=== PATIENT | female | born 1995 | race Caucasian/White ===

== ENCOUNTER 2016-09-28 11:55 | Outpatient (CLI) | payer BC, MEDICAID ==
[2016-09-28 12:27] LABS: APPEARANCE,URINE SLIGHTLY-CLOUDY; BILIRUBIN,URINE NEGATIVE (NEGATIVE); GLUCOSE, URINE NEGATIVE (NEGATIVE); KETONES,URINE NEGATIVE (NEGATIVE); LEUKOCYTE ESTERASE,URINE TRACE (NEGATIVE); NITRITE,URINE NEGATIVE (NEGATIVE); PROTEIN,URINE NEGATIVE (NEGATIVE); URINE SPECIFIC GRAVITY 1.002; UROBILINOGEN,URINE NEGATIVE mg/dL (<2.0)
[2016-09-28 12:47] LABS: URINE BARBITURATES SCREEN NEGATIVE; URINE METHADONE SCREEN NEGATIVE; URINE OPIATES LOW NEGATIVE; URINE PHENCYCLIDINE SCREEN NEGATIVE
--- NOTE | 2016-09-28 13:39 | Non Stress Test Report ---
Non Stress Test Datetime Report Generated by CPN: 09/28/2016 13:39 DEMOGRAPHIC EGA NST: 34.4 INDICATION Indication for Study (NST) Other: LC MONITORING Monitor Explained: Monitor Explained; Test Explained; Patient Verbalized Understanding Time on Monitor: 09/28/2016 12:14 Time off Monitor: 09/28/2016 13:28 NST Duration: 74 NST INTERVENTIONS NST Interventions: PO Hydration; Reposition Patient Physician Notified NST: Dr Matthews/C Gerber CNM BABY A: [id number] BABY A Movement : Present Contraction Frequency : 0 FHR Baseline : 145 Accelerations : 15X15 Decelerations : None Variability : Moderate 6-25bpm NST Review: Meets Criteria for Reactive NST NST Review and Verified By : D Bellavance RNC NST Results: Reactive NST REPORT Report Trigger: Send Report
== END 2016-09-28 13:37 | disposition home or self-care (01) ==
LOC: LC 11:55
PROVIDERS: ATTEND Obstetrics & Gynecology
PROC: 4A1HXCZ Monitoring of Products of Conception, Cardiac Rate, External Approach (ICD-10-PCS; principal; 2016-09-28)
DX: O47.03 False labor before 37 completed weeks of gestation, third trimester (principal); Z3A.34 34 weeks gestation of pregnancy
CPT/HCPCS: 59025; 80307; 81001

== ENCOUNTER 2016-10-18 10:57 | Outpatient (CLI) | payer MEDICAID ==
--- NOTE | 2016-10-18 12:14 | Non Stress Test Report ---
Non Stress Test Datetime Report Generated by CPN: 10/18/2016 12:14 DEMOGRAPHIC EGA NST: 37.3 INDICATION Indication for Study: Decreased Movement MONITORING Monitor Explained: Monitor Explained; Test Explained; Patient Verbalized Understanding Time on Monitor: 10/18/2016 11:18 Time off Monitor: 10/18/2016 11:58 NST Duration: 40 NST INTERVENTIONS NST Interventions: PO Hydration; Reposition Patient Physician Notified NST: Dr Matthews BABY A: [id number] BABY A Movement : Present Contraction Frequency : 0 FHR Baseline : 145 Accelerations : 15X15 Decelerations : None Variability : Moderate 6-25bpm NST Review: Meets Criteria for Reactive NST NST Review and Verified By : Earl Pierson RNC NST Results: Reactive NST REPORT Report Trigger: Send Report
== END 2016-10-18 12:06 | disposition home or self-care (01) ==
LOC: LC 10:57
PROVIDERS: ATTEND Obstetrics & Gynecology
PROC: 4A1HXCZ Monitoring of Products of Conception, Cardiac Rate, External Approach (ICD-10-PCS; principal; 2016-10-18)
DX: O36.8130 Decreased fetal movements, third trimester, not applicable or unspecified (principal); Z3A.37 37 weeks gestation of pregnancy
CPT/HCPCS: 59025

== ENCOUNTER 2016-10-26 09:56 | Outpatient (CLI) | payer BC, MEDICAID ==
--- NOTE | 2016-10-26 10:04 | Non Stress Test Report ---
Non Stress Test Datetime Report Generated by CPN: 10/26/2016 10:03 DEMOGRAPHIC EGA NST: 37.6 INDICATION Indication for Study: Ordered by Provider MONITORING Monitor Explained: Monitor Explained; Test Explained; Patient Verbalized Understanding Time on Monitor: 10/21/2016 13:25 Time off Monitor: 10/21/2016 14:03 NST Duration: 38 NST INTERVENTIONS NST Interventions: PO Hydration Physician Notified NST: H. Dion CNM BABY A: [id number] BABY A Movement : Present Contraction Frequency : 0 FHR Baseline : 140 Accelerations : 15X15 Decelerations : None Variability : Moderate 6-25bpm NST Review: Meets Criteria for Reactive NST NST Review and Verified By : GRANT Aceves Results: Reactive NST COMMENTS NST Comments: Per H. Dion CNM ok to be d/c home NST REPORT Report Trigger: Send Report
== END 2016-10-26 10:46 | disposition home or self-care (01) ==
LOC: LC 09:56
PROVIDERS: ATTEND Obstetrics & Gynecology
PROC: 4A1HXCZ Monitoring of Products of Conception, Cardiac Rate, External Approach (ICD-10-PCS; principal; 2016-10-26)
DX: Z34.93 Encounter for supervision of normal pregnancy, unspecified, third trimester (principal)
CPT/HCPCS: 59025

== ENCOUNTER 2016-10-27 00:46 | Outpatient (CLI) | payer BC, MEDICAID ==
--- NOTE | 2016-10-27 00:49 | Non Stress Test Report ---
Non Stress Test Datetime Report Generated by CPN: 10/27/2016 00:49 DEMOGRAPHIC EGA NST: 38.4 INDICATION Indication for Study: Ordered by Provider VITAL SIGNS Temperature - NST: 98.9 Pulse - NST: 83 RESP - NST: 16 NBPSYS NST: 110 NBPDIA NST: 65 MONITORING Monitor Explained: Monitor Explained; Test Explained; Patient Verbalized Understanding Time on Monitor: 10/26/2016 10:09 Time off Monitor: 10/26/2016 10:42 NST Duration: 33 NST INTERVENTIONS NST Interventions: PO Hydration; Reposition Patient Physician Notified NST: Dr Prince BABY A: [id number] BABY A Movement : Present Contraction Frequency : denies FHR Baseline : 145 Accelerations : 15X15 Decelerations : None Variability : Moderate 6-25bpm NST Review: Meets Criteria for Reactive NST NST Review and Verified By : Roby Meraz RN NST Results: Reactive NST REPORT Report Trigger: Send Report
[2016-10-27 01:23] LABS: APPEARANCE,URINE CLOUDY; BILIRUBIN,URINE NEGATIVE (NEGATIVE); GLUCOSE, URINE NEGATIVE (NEGATIVE); KETONES,URINE NEGATIVE (NEGATIVE); LEUKOCYTE ESTERASE,URINE MODERATE (NEGATIVE); NITRITE,URINE NEGATIVE (NEGATIVE); PROTEIN,URINE NEGATIVE (NEGATIVE); URINE SPECIFIC GRAVITY 1.004; UROBILINOGEN,URINE NEGATIVE mg/dL (<2.0)
[2016-10-27 01:29] LABS: AMNISURE (ROM) NEGATIVE (NEGATIVE)
[2016-10-27 01:52] LABS: URINE BARBITURATES SCREEN NEGATIVE; URINE METHADONE SCREEN NEGATIVE; URINE OPIATES LOW NEGATIVE; URINE PHENCYCLIDINE SCREEN NEGATIVE
== END 2016-10-27 08:10 | disposition home or self-care (01) ==
LOC: LC 00:46
PROVIDERS: ATTEND Obstetrics & Gynecology
DX: Z34.83 Encounter for supervision of other normal pregnancy, third trimester (principal); Z3A.38 38 weeks gestation of pregnancy
CPT/HCPCS: 59025; 80307; 81005; 84112

== ENCOUNTER → 2016-10-28 | Outpatient (CLI) | payer BC, MEDICAID ==
--- NOTE | 2016-10-28 09:49 | Non Stress Test Report ---
Non Stress Test Datetime Report Generated by CPN: 10/28/2016 09:48 DEMOGRAPHIC EGA NST: 38.5 INDICATION Indication for Study: Ordered by Provider MONITORING Monitor Explained: Monitor Explained; Test Explained; Patient Verbalized Understanding Time on Monitor: 10/27/2016 01:04 NST INTERVENTIONS NST Interventions: PO Hydration Physician Notified NST: Dr. Prince BABY A: [id number] BABY A Movement : Present Contraction Frequency : none FHR Baseline : 140 Accelerations : 15X15 Decelerations : None Variability : Moderate 6-25bpm NST Review: Meets Criteria for Reactive NST NST Review and Verified By : ALISON Headley NST Results: Reactive NST REPORT Report Trigger: Send Report
--- NOTE | 2016-10-28 10:21 | Non Stress Test Report ---
Non Stress Test Datetime Report Generated by CPN: 10/28/2016 10:21 DEMOGRAPHIC EGA NST: 38.6 INDICATION Indication for Study: Decreased Movement Indication for Study (NST) Other: sent from the office for repeat MONITORING Monitor Explained: Monitor Explained; Test Explained; Patient Verbalized Understanding Time on Monitor: 10/28/2016 10:00 Time off Monitor: 10/28/2016 10:20 NST Duration: 20 NST INTERVENTIONS NST Interventions: PO Hydration; Reposition Patient Physician Notified NST: Dr Matthews BABY A Movement : Present Contraction Frequency : 0 FHR Baseline : 130 Accelerations : 15X15 Decelerations : None Variability : Moderate 6-25bpm NST Review: Meets Criteria for Reactive NST NST Review and Verified By : Chris Morrison RN NST Results: Reactive NST REPORT Report Trigger: Send Report
== END ==
LOC: LC 09:39
PROVIDERS: ATTEND Obstetrics & Gynecology
PROC: 4A1HXCZ Monitoring of Products of Conception, Cardiac Rate, External Approach (ICD-10-PCS; principal; 2016-10-28)
DX: O36.8130 Decreased fetal movements, third trimester, not applicable or unspecified (principal); Z3A.38 38 weeks gestation of pregnancy
CPT/HCPCS: 59025

== ENCOUNTER 2016-10-30 16:47 | Outpatient (CLI) | payer BC, MEDICAID ==
[2016-10-30 17:23] LABS: APPEARANCE,URINE CLOUDY; BILIRUBIN,URINE NEGATIVE (NEGATIVE); GLUCOSE, URINE NEGATIVE (NEGATIVE); KETONES,URINE NEGATIVE (NEGATIVE); LEUKOCYTE ESTERASE,URINE MODERATE (NEGATIVE); NITRITE,URINE NEGATIVE (NEGATIVE); PROTEIN,URINE NEGATIVE (NEGATIVE); URINE SPECIFIC GRAVITY 1.015; UROBILINOGEN,URINE NEGATIVE mg/dL (<2.0)
[2016-10-30 17:42] LABS: URINE BARBITURATES SCREEN NEGATIVE; URINE METHADONE SCREEN NEGATIVE; URINE OPIATES LOW NEGATIVE; URINE PHENCYCLIDINE SCREEN NEGATIVE
== END 2016-10-30 17:48 | disposition home or self-care (01) ==
LOC: LC 16:47
PROVIDERS: ATTEND Obstetrics & Gynecology
PROC: 4A1HXCZ Monitoring of Products of Conception, Cardiac Rate, External Approach (ICD-10-PCS; principal; 2016-10-30)
DX: O47.1 False labor at or after 37 completed weeks of gestation (principal); Z3A.38 38 weeks gestation of pregnancy
CPT/HCPCS: 80307; 81005

== ENCOUNTER 2016-11-01 11:12 | Outpatient (CLI) | payer BC, MEDICAID ==
[2016-11-01 11:45] LABS: APPEARANCE,URINE SLIGHTLY-CLOUDY; BILIRUBIN,URINE NEGATIVE (NEGATIVE); GLUCOSE, URINE NEGATIVE (NEGATIVE); KETONES,URINE NEGATIVE (NEGATIVE); LEUKOCYTE ESTERASE,URINE NEGATIVE (NEGATIVE); NITRITE,URINE NEGATIVE (NEGATIVE); PROTEIN,URINE NEGATIVE (NEGATIVE); URINE SPECIFIC GRAVITY 1.014; UROBILINOGEN,URINE NEGATIVE mg/dL (<2.0)
[2016-11-01 12:08] LABS: URINE BARBITURATES SCREEN NEGATIVE; URINE METHADONE SCREEN NEGATIVE; URINE OPIATES LOW NEGATIVE; URINE PHENCYCLIDINE SCREEN NEGATIVE
[2016-11-01 12:19] LABS: URINE CREATININE 102.7 mg/dL (16-327); URINE PROTEIN 13.7 mg/dL (<12)
[2016-11-01 12:26] LABS: ABSOLUTE EOSINOPHILS # (AUTO) 0.1 10^3/uL (0.0-0.6); ABSOLUTE MONOCYTES (AUTO) 0.7 10^3/uL (0.1-1.4); ABSOLUTE NEUT (AUTO) 7.9 10^3/uL (1.7-8.2); BASOPHILS % (AUTO) 0.3 % (0-2); EOSINOPHILS % (AUTO) 1.1 % (0-6); HEMOGLOBIN 12.6 g/dL (12.0-15.5); HGB HCT DIFFERENCE 0.8; MEAN CORPUSCULAR HEMOGLOBIN 29.6 pg (27.0-33.4); MEAN CORPUSCULAR VOLUME 87 fl (80-97); MONOCYTES % (AUTO) 6.2 % (3-13); RED BLOOD COUNT 4.25 10^6/uL (3.72-5.28); RED CELL DISTRIBUTION WIDTH 13.4 % (11.5-14.0); SEGMENTED NEUTROPHILS % (AUTO) 73.4 % (42-78); WHITE BLOOD COUNT 10.7 10^3/uL (4.0-10.5)
[2016-11-01 12:47] LABS: ALANINE AMINOTRANSFERASE 19 U/L (9-52); ALBUMIN 3.2 g/dL (3.5-5.0); ALKALINE PHOSPHATASE 141 U/L (38-126); ANION GAP 9 (5-19); ASPARTATE AMINO TRANSFERASE 16 U/L (14-36); BILIRUBIN,DIRECT 0.2 mg/dL (0.0-0.4); BILIRUBIN,TOTAL 0.2 mg/dL (0.2-1.3); BLOOD UREA NITROGEN 15 mg/dL (7-20); CALCIUM 10.1 mg/dL (8.4-10.2); CARBON DIOXIDE 21 mmol/L (22-30); CHLORIDE 108 mmol/L (98-107); CREATININE RESULT 0.81 mg/dL (0.52-1.25); GLUCOSE 77 mg/dL (75-110); LDH 385 U/L (313-618); POTASSIUM 4.4 mmol/L (3.6-5.0); SODIUM 138.4 mmol/L (137-145); TOTAL PROTEIN 6.1 g/dL (6.3-8.2); URIC ACID 7.7 mg/dL (2.5-6.2)
--- NOTE | 2016-11-01 13:09 | Non Stress Test Report ---
Non Stress Test Datetime Report Generated by CPN: 11/01/2016 13:09 DEMOGRAPHIC EGA NST: 39.3 EGA NST: 39.1 INDICATION Indication for Study: Other Indication for Study (NST) Other: PIH workup MONITORING Monitor Explained: Monitor Explained; Test Explained; Patient Verbalized Understanding Monitor Explained: Monitor Explained; Test Explained; Patient Verbalized Understanding Time on Monitor: 11/01/2016 11:28 Time on Monitor: 10/30/2016 17:03 Time off Monitor: 11/01/2016 13:04 NST Duration: 96 NST INTERVENTIONS NST Interventions: PO Hydration; Reposition Patient NST Interventions: None Physician Notified NST: C. Gerber CNM Physician Notified NST: P Bennett CNM BABY A: [id number] BABY A Movement : Present Movement : Decreased Contraction Frequency : none FHR Baseline : 145 Accelerations : 15X15 Accelerations : 15X15 Decelerations : None Decelerations : None Variability : Moderate 6-25bpm Variability : Moderate 6-25bpm NST Review: Meets Criteria for Reactive NST NST Review: Meets Criteria for Reactive NST NST Review and Verified By : Chris Morrison RN NST Review and Verified By : Brian Yan RN NST Results: Reactive NST Results: Reactive NST REPORT Report Trigger: Send Report
== END 2016-11-01 13:12 | disposition home or self-care (01) ==
LOC: LC 11:12
PROVIDERS: ATTEND Specialist
PROC: 4A1HXCZ Monitoring of Products of Conception, Cardiac Rate, External Approach (ICD-10-PCS; principal; 2016-11-01)
DX: O36.8130 Decreased fetal movements, third trimester, not applicable or unspecified (principal); Z3A.39 39 weeks gestation of pregnancy
CPT/HCPCS: 36415; 59025; 80053; 80307; 81001; 82570; 83615; 84156; 84550; 85025

== ENCOUNTER 2016-11-02 10:11 | Outpatient (CLI) | payer BC, MEDICAID ==
[2016-11-02 11:01] LABS: APPEARANCE,URINE CLOUDY; BILIRUBIN,URINE NEGATIVE (NEGATIVE); GLUCOSE, URINE NEGATIVE (NEGATIVE); KETONES,URINE NEGATIVE (NEGATIVE); LEUKOCYTE ESTERASE,URINE NEGATIVE (NEGATIVE); NITRITE,URINE NEGATIVE (NEGATIVE); PROTEIN,URINE NEGATIVE (NEGATIVE); URINE SPECIFIC GRAVITY 1.018; UROBILINOGEN,URINE NEGATIVE mg/dL (<2.0)
--- NOTE | 2016-11-02 11:21 | Non Stress Test Report ---
Non Stress Test Datetime Report Generated by CPN: 11/02/2016 11:21 DEMOGRAPHIC EGA NST: 38.4 INDICATION Indication for Study: Other Indication for Study (NST) Other: lc VITAL SIGNS Temperature - NST: 98.5 MONITORING Monitor Explained: Monitor Explained; Test Explained; Patient Verbalized Understanding Time on Monitor: 10/26/2016 10:23 Time off Monitor: 11/02/2016 11:19 NST Duration: 10301 NST INTERVENTIONS NST Interventions: PO Hydration; Reposition Patient Physician Notified NST: Matthews BABY A: [id number] BABY A Movement : Present Contraction Frequency : 0 FHR Baseline : 135 Accelerations : 15X15 Decelerations : None Variability : Moderate 6-25bpm NST Review: Meets Criteria for Reactive NST NST Review and Verified By : Roby Johnson RN NST Results: Reactive NST REPORT Report Trigger: Send Report
[2016-11-02 11:28] LABS: URINE BARBITURATES SCREEN NEGATIVE; URINE METHADONE SCREEN NEGATIVE; URINE OPIATES LOW NEGATIVE; URINE PHENCYCLIDINE SCREEN NEGATIVE
== END 2016-11-02 11:44 | disposition home or self-care (01) ==
LOC: LC 10:11
PROVIDERS: ATTEND Obstetrics & Gynecology
PROC: 4A1HXCZ Monitoring of Products of Conception, Cardiac Rate, External Approach (ICD-10-PCS; principal; 2016-11-02)
DX: O47.1 False labor at or after 37 completed weeks of gestation (principal); Z3A.38 38 weeks gestation of pregnancy
CPT/HCPCS: 59025; 80307; 81005

== ENCOUNTER 2016-11-03 09:55 | Inpatient (IN) | payer BC, MEDICAID ==
[2016-11-03] MEDS ORDERED: ONDANSETRON HCL INJ/PF 4 MG/2 ML SDV ONE ×2 (10:29→12:39)
[2016-11-03] MEDS ORDERED: METOCLOPRAMIDE HCL INJ/PF 10 MG/2 ML SDV ONE (10:29)
[2016-11-03] MEDS ORDERED: DEXAMETHASONE SOD PHOSPHATE INJ 4 MG/1 ML VIAL ONE (10:29)
[2016-11-03 10:43] LABS: APPEARANCE,URINE CLOUDY; BILIRUBIN,URINE NEGATIVE (NEGATIVE); GLUCOSE, URINE NEGATIVE (NEGATIVE); KETONES,URINE NEGATIVE (NEGATIVE); LEUKOCYTE ESTERASE,URINE TRACE (NEGATIVE); NITRITE,URINE NEGATIVE (NEGATIVE); PROTEIN,URINE 100 mg/dL (NEGATIVE); URINE SPECIFIC GRAVITY 1.024; UROBILINOGEN,URINE NEGATIVE mg/dL (<2.0)
[2016-11-03 11:00] LABS: ABSOLUTE BASOPHILS # (AUTO) 0.1 10^3/uL (0.0-0.2); ABSOLUTE EOSINOPHILS # (AUTO) 0.1 10^3/uL (0.0-0.6); ABSOLUTE LYMPHOCYTES (AUTO) 2.4 10^3/uL (0.5-4.7); ABSOLUTE MONOCYTES (AUTO) 0.8 10^3/uL (0.1-1.4); ABSOLUTE NEUT (AUTO) 8.6 10^3/uL (1.7-8.2); BASOPHILS % (AUTO) 0.7 % (0-2); HEMOGLOBIN 13.7 g/dL (12.0-15.5); HGB HCT DIFFERENCE 1.1; LYMPHOCYTES % (AUTO) 19.8 % (13-45); MEAN CORPUSCULAR HEMOGLOBIN 29.6 pg (27.0-33.4); MEAN CORPUSCULAR HGB CONC 34.3 g/dL (32.0-36.0); MEAN CORPUSCULAR VOLUME 86 fl (80-97); MONOCYTES % (AUTO) 6.3 % (3-13); RED BLOOD COUNT 4.64 10^6/uL (3.72-5.28); RED CELL DISTRIBUTION WIDTH 13.7 % (11.5-14.0); SEGMENTED NEUTROPHILS % (AUTO) 72.2 % (42-78)
[2016-11-03 11:03] LABS: URINE BARBITURATES SCREEN NEGATIVE; URINE METHADONE SCREEN NEGATIVE; URINE OPIATES LOW NEGATIVE; URINE PHENCYCLIDINE SCREEN NEGATIVE
[2016-11-03 11:26] LABS: ALANINE AMINOTRANSFERASE 22 U/L (9-52); ALBUMIN 3.4 g/dL (3.5-5.0); ALKALINE PHOSPHATASE 166 U/L (38-126); ANION GAP 12 (5-19); ASPARTATE AMINO TRANSFERASE 20 U/L (14-36); BILIRUBIN,DIRECT 0.2 mg/dL (0.0-0.4); BILIRUBIN,TOTAL 0.3 mg/dL (0.2-1.3); BLOOD UREA NITROGEN 13 mg/dL (7-20); CALCIUM 9.3 mg/dL (8.4-10.2); CARBON DIOXIDE 19 mmol/L (22-30); CHLORIDE 107 mmol/L (98-107); CREATININE RESULT 0.86 mg/dL (0.52-1.25); GLUCOSE 70 mg/dL (75-110); LDH 420 U/L (313-618); POTASSIUM 4.5 mmol/L (3.6-5.0); SODIUM 138.4 mmol/L (137-145); TOTAL PROTEIN 6.4 g/dL (6.3-8.2); URIC ACID 8.6 mg/dL (2.5-6.2)
[2016-11-03] MEDS ORDERED: MISOPROSTOL 0.2 MG TABLET ONE (11:29)
[2016-11-03] MEDS ORDERED: OXYTOCIN/NORMAL SALINE 20 UNIT/1,000 ML RTUINJ ONE ×2 (11:29→12:39)
[2016-11-03] MEDS ORDERED: LIDOCAINE 1% INJ-PF (10 MG/ML) 30 ML SDV ONE (11:29)
[2016-11-03] MEDS ORDERED: RINGERS SOLUTION,LACTATED 1,000 ML IV ONE (11:30)
[2016-11-03] MEDS ORDERED: RINGERS SOLUTION,LACTATED 1,000 ML IV PRN (11:30)
[2016-11-03 11:46] LABS: URINE CREATININE 252.1 mg/dL (16-327); URINE PROTEIN 19.4 mg/dL (<12)
[2016-11-03] MEDS ORDERED: CEFAZOLIN INJ 1 GM VIAL ONE (12:20)
[2016-11-03] MEDS ORDERED: CITRIC ACID/SODIUM CITRATE ORAL SOLN 15 ML UDCUP ONE (12:20)
--- NOTE | 2016-11-03 12:32 | L&D Progress Notes ---
PROGRESS NOTES Datetime Report Generated by CPN: 11/03/2016 12:32 PROGRESS NOTE Impression: Non-reassuring Heart Rate Plan: Deliver- Section Informed Consent Obtained: Vaginal Delivery; Section Delivery; Risks, Benefits and Alternatives Discussed Vital Signs : Reviewed Comment: Pt with variable that persist despite multiple position changes and despite intrauterine resuscitation. Variables are now deeper and with less varibiltiy between ctx. TO OR for urgent c/s - ANesthesia and OR team notified. VAGINAL EXAM Dilatation: 2 Effacement: 70 Station: -3 Contractions: q 2-3 MEMBRANES Membranes: Ruptured Amniotic Fluid Color: Meconium, Light FETUS A Presentation: Vertex SIGNATURE SIGNATURE: [id number] SIGNATURE: [id number] SIGNATURE: [id number] SIGNATURE: [id number] SIGNATURE: [id number] SIGNATURE: [id number] SIGNATURE: [id number] SIGNATURE: [id number] SIGNATURE: [id number] Signature: with User ID: [email or web address]
[2016-11-03] MEDS ORDERED: FENTANYL CITRATE INJ/PF 100 MCG/2 ML AMPUL ONE ×2 (12:38→15:06)
[2016-11-03] MEDS ORDERED: EPHEDRINE SULFATE INJ 50 MG/1 ML AMPULE ONE (12:38)
[2016-11-03] MEDS ORDERED: FENTANYL CITRATE INJ/PF 250 MCG/5 ML AMPULE ONE (12:38)
[2016-11-03] MEDS ORDERED: OXYTOCIN 10 UNIT/ML VIAL ONE (12:38)
[2016-11-03] MEDS ORDERED: MIDAZOLAM 2 MG/2 ML INJ ONE (12:39)
[2016-11-03] MEDS ORDERED: FENTANYL CITRATE INJ/PF 100 MCG/2 ML AMPUL IV PRN ×2 (13:49)
[2016-11-03] MEDS ORDERED: MORPHINE SULFATE 10 MG/ML INJ IV PRN (13:49)
[2016-11-03] MEDS ORDERED: MEPERIDINE HCL/PF INJ 25 MG/1 ML DISP.SYRIN IV PRN (13:49)
[2016-11-03] MEDS ORDERED: PROMETHAZINE HCL INJ 25 MG/1 ML VIAL IV PRN ×2 (13:49→14:24)
[2016-11-03] MEDS ORDERED: DIPHENHYDRAMINE HCL 50 MG/ML VIAL IV PRN (13:49)
[2016-11-03] MEDS: OXYTOCIN/NORMAL SALINE 20 UNIT/1,000 ML RTUINJ IV PRN ×2 (14:01→17:56)
[2016-11-03] MEDS ORDERED: OXYCODONE-ACETAMINOPHEN 5-325 MG TABLET PO PRN (14:24)
[2016-11-03] MEDS ORDERED: ACETAMINOPHEN 100 ML IV PRN (14:24)
[2016-11-03] MEDS ORDERED: ACETAMINOPHEN 325 MG TABLET PO PRN (14:24)
[2016-11-03] MEDS ORDERED: HYDROMORPHONE HCL INJ/PF 2 MG/ML AMPULE IV PRN (14:24)
[2016-11-03] MEDS ORDERED: OXYTOCIN/NORMAL SALINE 20 UNIT/1,000 ML RTUINJ IV PRN (14:24)
[2016-11-03] MEDS ORDERED: DIPH/PERTUSS(ACELL)/TETANUS VAC/PF 0.5 ML SYR (>=10YO) IM PRN (14:24)
[2016-11-03] MEDS ORDERED: MEASLES,MUMPS&RUBELLA VACC/PF 0.5 ML VIAL SUBCUT PRN (14:24)
--- NOTE | 2016-11-03 14:24 | Brief Operative Note ---
BRIEF OPERATIVE REPORT DATE OF SURGERY: 11/03/16 TIME OF SURGERY: 14:00 PREOPERATIVE DIAGNOSIS: Non reassuring FHR tracing, 39+5ega, PreE POSTOPERATIVE DIAGNOSIS: CRUZ delivered, suspect impending uterine rupture see notes SURGEON: ALONZO TRIPLETT FINDINGS: VMI, no nuchal cord, 2840g (6#4oz), Apgars 8/9, normal tubes/ovaries, uterus with distended Lower uterine segment and upon delivery of infant ( head attempted to deliver through lower uterine segment instead of through lower uterine segment incision) ruptured from Lower uterine segment toward cervix, IVF 2100ml, UOP 375ml. Magnesium SUlfate started COMPLICATIONS: extension into cervix ESTIMATED BLOOD LOSS: 600ml TISSUE REMOVED OR ALTERED: placenta and cord - sent to pathology TECHNICAL PROCEDURE: Primary LTCS
[2016-11-03] MEDS ORDERED: ACETAMINOPHEN 100 ML IV ONE (14:50)
[2016-11-03] MEDS ORDERED: KETOROLAC TROMETHAMINE INJ/PF 30 MG/1 ML SDV ONE ×2 (14:54→16:48)
[2016-11-03] MEDS ORDERED: NALBUPHINE HCL INJ 10 MG/1 ML AMPULE ONE (15:06)
[2016-11-03] MEDS: FENTANYL CITRATE INJ/PF 100 MCG/2 ML AMPUL IV PRN ×4 (15:07→16:01)
[2016-11-03] MEDS ORDERED: MAGNESIUM SULFATE 4 GM/100 ML RTUPB IV ONE (15:24)
[2016-11-03] MEDS ORDERED: MORPHINE SULFATE 10 MG/ML INJ ONE (16:12)
--- NOTE | 2016-11-03 17:39 | Delivery Summary ---
Del Sum A-C Datetime Report Generated by CPN: 11/03/2016 17:38 DELIVERY PERSONNEL DELIVERY PERSONNEL: [id number] Delivery Doctor:: Shirley Syed MD Labor and Delivery Nurse:: Qi Lake RN Multiskill Operator:: Qi Lake RN Neonatal Nurse Practitioner:: ELVA Pastor Nursery Nurse:: Octavia Spencer RN Nursery Nurse:: Dede Lackey RN Paralegal Legal Secretary/PIER MASTER ASSISTANT: ST Mayank Paralegal Legal Secretary/PIER MASTER ASSISTANT: Clint Eastman, ST MATERNAL INFORMATION Delivery Anesthesia: Spinal Medications After Delivery: Pitocin Bolus-Please Comment; Pitocin Drip 20 Units/1000ml NSS Estimated Blood Loss (ml): 600 Maternal Complications: None Other Maternal Complications: meconium LABOR SUMMARY EDC: 11/05/2016 00:00 No. Babies in Womb: 1 Attempted: No Labor Anesthesia: None LABOR INFORMATION Reason for Induction: Pre-Eclampsia Onset of Labor: 11/03/2016 10:45 Oxytocin: N/A Group B Beta Strep: negative Antibiotics # of Doses: 1 Antibiotics Time of Last Dose: 1232 Name of Antibiotic Given: Ancef 3 gms IV Steroids Given: None Reason Steroids Not Administered: Not Applicable MEMBRANES Membranes Rupture Method: Artificial Rupture of Membranes: 11/03/2016 11:42 Length of Rupture (hr): 1.53 Amniotic Fluid Color: Moderate Meconium Amniotic Fluid Amount: Moderate Amniotic Fluid Odor: Normal STAGES OF LABOR Stage 3 hr: 0 Stage 3 min: 2 Total Time in Labor hr: 2 Total Time in Labor min: 31 VAGINAL DELIVERY Episiotomy: None Laceration Extension: N/A Laceration Type: None Sponge Count Correct: N/A Sharps Count Correct: N/A CSECTION DELIVERY Primary Indication: Nonreassuring Status Secondary Indication: N/A CSection Urgency: Emergency CSection Incidence: Primary Labor: Labor Elective: N/A CSection Incision: Lower Uterine Transverse CSection Incision- Other: RAFAEL drain BABY A INFORMATION Delivery Date/Time: 11/03/2016 13:14 Method of Delivery: Born in Route : No : N/A Forceps: N/A Vacuum Extraction: N/A (Annotations: Data stored by [facility] on behalf of user) Shoulder Dystocia : No PRESENTATION/POSITION BABY A Presentation: Cephalic Cephalic Presentation: Vertex Breech Presentation: N/A PLACENTA INFORMATION BABY A Placenta Delivery Time : 11/03/2016 13:16 Placenta Method of Delivery: Manual Removal Placenta Status: Delivered SCORES BABY A Heart Rate 1 min: >100 bpm Resp Effort 1 min: Good Cry Reflex Irritability 1 min: Cough or Sneeze or Pulls Away Muscle Tone 1 min: Active Motion Color 1 min: Blue/Pale Resuscitation Effort 1 min: Tactile Stimulation SCORE 1 MIN: 8 Heart Rate 5 min: >100 bpm Resp Effort 5 min: Good Cry Reflex Irritability 5 min: Cough or Sneeze or Pulls Away Muscle Tone 5 min: Active Motion Color 5 min: Body [place], Extremities Blue Resuscitation Effort 5 min: N/A SCORE 5 MIN: 9 INFORMATION BABY A Gestational Age at Delivery: 39.5 Gestational Status: Full Term- 39- 40.6 Weeks Infant Outcome : Liveborn Condition : Stable Infant Sex: Male IDENTIFICATION BABY A Infant Verification Date/Time: 11/03/2016 13:17 ID Band Number: [id number] Mother's Name Verified: Yes RN Verifying : V Monk RN Additional Verifying Personnel: Elizabeth Alex PIER MASTER ASSISTANT WEIGHT/LENGTH BABY A Birthweight (gm): 2840 Infant Weight (lb): 6 Infant Weight (oz): 4 Length (in): 20.00 Length (cm): 50.80 CORD INFORMATION BABY A No. Cord Vessels: 3 Nuchal Cord : N/A Cord Blood Taken: Yes-For Eval (Mom's Blood Type - or O+) Infant Suction: None; Mouth ASSESSMENT BABY A Infant Complications: None Physical Findings at Delivery: Within Normal Limits Skin to Skin: Yes Infant Care By: nursery nurses Transferred To: [facility] BABY B INFORMATION : N/A
[2016-11-03] MEDS ORDERED: HYDROMORPHONE HCL INJ/PF 2 MG/ML AMPULE ONE (18:41)
[2016-11-03] MEDS ORDERED: DOCUSATE SODIUM 100 MG CAPSULE ONE (18:41)
[2016-11-03] MEDS ORDERED: SIMETHICONE 80 MG TAB.CHEW ONE (18:41)
[2016-11-03] MEDS: SIMETHICONE 80 MG TAB.CHEW PO PRN (18:44)
[2016-11-03 20:10] LABS: HEMATOCRIT 41.6 % (36.0-47.0); HEMOGLOBIN 14.2 g/dL (12.0-15.5); MEAN CORPUSCULAR HEMOGLOBIN 29.2 pg (27.0-33.4); MEAN CORPUSCULAR VOLUME 86 fl (80-97); RED BLOOD COUNT 4.84 10^6/uL (3.72-5.28); RED CELL DISTRIBUTION WIDTH 13.5 % (11.5-14.0); WHITE BLOOD COUNT 22.5 10^3/uL (4.0-10.5)
[2016-11-03 20:12] LABS: PROTHROMBIN TIME 12.4 SEC (11.4-15.4)
[2016-11-03 20:13] LABS: PARTIAL THROMBOPLASTIN TIME 28.8 SEC (23.5-35.8)
[2016-11-03 20:26] LABS: CREATININE RESULT 0.75 mg/dL (0.52-1.25)
[2016-11-03] MEDS ORDERED: KETOROLAC TROMETHAMINE INJ/PF 30 MG/1 ML SDV IV SCH (22:00)
[2016-11-03] MEDS: DOCUSATE SODIUM 100 MG CAPSULE PO SCH (23:10)
[2016-11-03] MEDS ORDERED: OXYCODONE-ACETAMINOPHEN 5-325 MG TABLET ONE (23:12)
--- NOTE | 2016-11-04 00:52 | L&D Progress Notes ---
PROGRESS NOTES Datetime Report Generated by CPN: 11/04/2016 00:52 PROGRESS NOTE Impression Other: magnesium sulfate eval Vital Signs : Reviewed Vital Signs Comments: BPs improved Comment: BPs improved. OK to discontinue Magnesium Sulfate. DIuresing well. WIll discontinue Magnesium Sulfate and plan to transfer to floor and begin procardia. FETUS C SIGNATURE: [id number];14,[id number];[id number] SIGNATURE: [id number];[id number];10,[id number] Signature: with User ID: [email or web address]
--- NOTE | 2016-11-04 03:01 | Admission Physical ---
Datetime Report Generated by CPN: 11/04/2016 03:01 CURRENT ADMISSION Chief Complaint: Uterine Contractions; Signs/Symptoms Gestational HTN Indication for Induction: Gestational HTN; Indicated by Testing Admit Plan: Admit to Unit; Initiate Labor Induction Protocol ALLERGIES Medication Allergies: No Medication Allergies: No Known Allergies (11/03/2016) Medication Allergies: No Known Allergies (10/27/2016) Medication Allergies: No Known Allergies (10/26/2016) Medication Allergies: No Known Allergies (10/21/2016) Medication Allergies: No Known Allergies (09/28/2016) Medication Allergies: No Known Allergies (03/30/2014) Latex: No Latex Allergies Food Allergies: N/A Environmental Allergies: N/A OBSTETRICAL HISTORY EDC: 11/05/2016 00:00 : 1 Para: 0 Term: 0 : 0 SAB: 0 IAB: 0 Ectopic: 0 Livin Cesareans: 0 VBACs: 0 Multiple Births: 0 Gestational Diabetes: No Rh Sensitization: No Incompetent Cervix: No MICHELE: No Infertility: No ART Treatment: No Uterine Anomaly: No IUGR: No Hx Previous C/S: No Macrosomia: No Hx Loss/Stillborn: No PIH: No Hx : No Placenta Previa/Abruption: No Depression/PP Depression: No PTL/PROM: No Post Hemorrhage: No Current Procedures: Ultrasound; NST Obstetrical History Comments: G1: current SEE RECORDS Alcohol: No Marijuana : No Cocaine: No Other Illicit Drugs: No Cigarettes: Former Smoker. [id number] MEDICAL HISTORY Diabetes: No Blood Transfusion: No Pulmonary Disease (Asthma, TB): No Breast Disease: No Hypertension: No Sustainability Manager Surgery: No Heart Disease: No Hosp/Surgery: No Autoimmune Disorder: No Anesthetic Complications: No Kidney Disease: No Abnormal Pap Smear: No Neuro/Epilepsy: No Psychiatric Disorders: Yes Other Medical Diseases: No Hepatitis/Liver Disease: No Significant Family History: No Varicosities/Phlebitis: No Trauma/Violence : No Thyroid Dysfunction: No Medical History Comments: anxiety/mood disorder - on zoloft INFECTIOUS HISTORY Gonorrhea: No Genital Herpes: No Chlamydia: No Tuberculosis: No Syphilis: No Hepatitis: No HIV/AIDS Exposure: No Rash or Viral Illness: No HPV: No PHYSICAL EXAM General: Normal HEENT: Normal Neurologic: Normal Thyroid: Normal Heart: Normal Lungs: Normal Breast: Deferred Back: Normal Abdomen: Normal Genitourinary Exam: Normal Extremities: Normal DTRs: Normal Pelvic Type: Adequate Vital Signs: Reviewed Details Vital Signs: mild range BPs, c/w GHTN vs PreE VAGINAL EXAM Dilatation: 2 Effacement: 70 Station: -3 Contraction Comments: q 2-3 MEMBRANES Membranes: Ruptured Amniotic Fluid Color: Meconium, Light FETUS A EGA: 39.5 Monitoring: External US; Auscultation FHR- Baseline: 120 Variability: Moderate 6-25bpm Accelerations: 15X15 Decelerations: Variable FHR Category: Category II FHR Comments: variables, o/w good variability Presentation: Vertex Admit Comment: 21yo aqt 39+5ega with GHTN vs PreE. No symptoms of preE. Pt sent to L_D on Tuesday for elevated BPs and swelling. Variables - IVF and maternal o2 and position changes. Will try Amnioinfusion. AROM with light meconium noted. IUPC and FSE placed. Reviewed poss need for C/S if unable to resolved FHR variables or if any further concerns. Unable to perform IV pain meds. c/b Obesity, depression Anxiety. Needs 1 wks pp appt for EPDS. Anticpate if FHR variables improve. PLANS FOR LABOR AND DELIVERY Labor and Delivery: None Pain Management: Epidural Feeding Preference: Both Benefit of Breast Feed Discussed: Yes Circumcision: Yes INFORMED CONSENT Informed Consent Obtained: Vaginal Delivery; Section Delivery; Risks, Benefits and Alternatives Discussed Signature: with User ID: [email or web address]
[2016-11-04] MEDS: OXYCODONE-ACETAMINOPHEN 5-325 MG TABLET PO PRN ×5 (03:08→21:00)
[2016-11-04] MEDS: SIMETHICONE 80 MG TAB.CHEW PO PRN (04:34)
[2016-11-04 06:37] LABS: HEMATOCRIT 37.8 % (36.0-47.0); HEMOGLOBIN 13.2 g/dL (12.0-15.5); HGB HCT DIFFERENCE 1.8; MEAN CORPUSCULAR HEMOGLOBIN 29.5 pg (27.0-33.4); MEAN CORPUSCULAR HGB CONC 34.9 g/dL (32.0-36.0); MEAN CORPUSCULAR VOLUME 85 fl (80-97); RED BLOOD COUNT 4.47 10^6/uL (3.72-5.28); RED CELL DISTRIBUTION WIDTH 13.7 % (11.5-14.0); WHITE BLOOD COUNT 21.3 10^3/uL (4.0-10.5)
[2016-11-04] MEDS: NIFEDIPINE 30 MG TAB.ER.24 PO SCH (09:41)
[2016-11-04] MEDS: PRENATAL VITAMIN W-O CA NO5/FE FUMARATE/FA CAPSULE PO SCH (09:42)
[2016-11-04] MEDS: DOCUSATE SODIUM 100 MG CAPSULE PO SCH ×2 (09:42→16:58)
[2016-11-04] MEDS ORDERED: ENOXAPARIN SODIUM INJ 40 MG/0.4 ML DISP.SYRIN SUBCUT SCH ×2 (10:00→13:00)
--- NOTE | 2016-11-04 13:34 | PDOC PROGRESS REPORT ---
Subjective-OB Subjective: Post Delivery Day: 21 year old. Denies any needs at this time. No history of blood clots. Headache now she feels is due to med being late-improving with ice pack on neck. Physical Exam (OB) Vital Signs: Temp Pulse Resp BP Pulse Ox 98.1 F 79 14 126/81 H 99 11/04/16 11:44 11/04/16 11:44 11/04/16 11:44 11/04/16 11:44 11/04/16 11:44 Intake & Output 11/03/16 11/04/16 11/05/16 06:59 06:59 06:59 Intake Total 600 Output Total 1300 8 Balance -1300 592 Weight 12.25 kg - PIH/Pre-Eclampsia DTR's: 2 + Clonus: Negative Headache: Absent Epigastric Pain: No Visual Changes: No - Dressing Removed: Yes Incision: Well Approximated Closure Type: Surgical Glue - Lochia Lochia Amount: Small 10-25 ml Lochia Color: Rubra/Red - Abdomen Description: Soft, Round Hernia Present: No Bowel Sounds: Normoactive Flatus Presence: Absent Stool: No Fundal Description: Firm Fundal Height: u/u - u/2 Objective-Diagnostic Laboratory: 11/04/16 06:10 11/03/16 19:45 11/03/16 11/03/16 11/04/16 19:45 19:45 06:10 WBC 22.5 H 21.3 H RBC 4.84 4.47 Hgb 14.2 13.2 Hct 41.6 37.8 MCV 86 85 MCH 29.2 29.5 MCHC 34.0 34.9 RDW 13.5 13.7 Plt Count 240 234 Creatinine 0.75 Est GFR ( Amer) > 60 Est GFR (Non-Af Amer) > 60
[2016-11-04] MEDS ORDERED: DIPH/PERTUSS(ACELL)/TETANUS VAC/PF 0.5 ML SYR (>=10YO) IM PRN (14:30)
[2016-11-04] MEDS ORDERED: MEASLES,MUMPS&RUBELLA VACC/PF 0.5 ML VIAL SUBCUT PRN (14:30)
[2016-11-04] MEDS ORDERED: PROMETHAZINE HCL INJ 25 MG/1 ML VIAL IV PRN (14:30)
[2016-11-04] MEDS: IBUPROFEN 800 MG TABLET PO SCH (23:55)
[2016-11-05] MEDS: OXYCODONE-ACETAMINOPHEN 5-325 MG TABLET PO PRN ×5 (01:50→23:42)
[2016-11-05] MEDS: IBUPROFEN 800 MG TABLET PO SCH ×4 (05:02→23:44)
[2016-11-05 09:05] LABS: HEMATOCRIT 36.3 % (36.0-47.0); HEMOGLOBIN 12.4 g/dL (12.0-15.5); HGB HCT DIFFERENCE 0.9; MEAN CORPUSCULAR HEMOGLOBIN 29.6 pg (27.0-33.4); MEAN CORPUSCULAR HGB CONC 34.1 g/dL (32.0-36.0); MEAN CORPUSCULAR VOLUME 87 fl (80-97); RED BLOOD COUNT 4.17 10^6/uL (3.72-5.28); WHITE BLOOD COUNT 14.3 10^3/uL (4.0-10.5)
[2016-11-05] MEDS: NIFEDIPINE 30 MG TAB.ER.24 PO SCH (09:27)
[2016-11-05] MEDS: DOCUSATE SODIUM 100 MG CAPSULE PO SCH ×2 (09:27→17:24)
[2016-11-05] MEDS: PRENATAL VITAMIN W-O CA NO5/FE FUMARATE/FA CAPSULE PO SCH (09:27)
--- NOTE | 2016-11-05 11:51 | PDOC PROGRESS REPORT ---
Subjective-OB Subjective: Post Delivery Day: 21 year old. Denies any needs at this time. Pt doing well, reports light bleeding, regular diet, voiding without difficulty and + flatus. She has no complaints. Denies headache, vision changes and epigastric pain. RAFAEL drain in place, serous fluid noted. Physical Exam (OB) Vital Signs: Temp Pulse Resp BP Pulse Ox 98.9 F 77 15 131/85 H 100 11/05/16 08:12 11/05/16 08:12 11/05/16 08:12 11/05/16 08:12 11/05/16 08:12 Intake & Output 11/04/16 11/05/16 11/06/16 06:59 06:59 06:59 Intake Total 600 Output Total 1300 17 Balance -1300 583 Weight 12.25 kg - PIH/Pre-Eclampsia DTR's: 2 + Clonus: Negative Headache: Absent Epigastric Pain: No Visual Changes: No - Dressing Removed: Yes Incision: Well Approximated Closure Type: Surgical Glue - Lochia Lochia Amount: Small 10-25 ml Lochia Color: Rubra/Red - Abdomen Description: Soft, Round Hernia Present: No Fundal Description: Firm, Midline Fundal Height: u/u - u/2 Objective-Diagnostic Laboratory: 11/05/16 08:45 11/03/16 19:45 11/05/16 08:45 WBC 14.3 H RBC 4.17 Hgb 12.4 Hct 36.3 MCV 87 MCH 29.6 MCHC 34.1 RDW 14.0 Plt Count 232 Assessment and Plan(PN) - Assessment and Plan (1) Delivery by emergency caesarean section Is this a current diagnosis for this admission?: Yes - Time Spent with Patient Time with patient: Less than 15 minutes Medications reviewed and adjusted accordingly: Yes - Disposition Anticipated Discharge: Home Within: within 24 hours
[2016-11-05] MEDS ORDERED: ONDANSETRON 4 MG TAB.RAPDIS ONE (14:51)
[2016-11-05] MEDS ORDERED: ONDANSETRON 4 MG TAB.RAPDIS PO PRN (14:56)
[2016-11-05] MEDS: SIMETHICONE 80 MG TAB.CHEW PO PRN (20:27)
--- NOTE | 2016-11-05 22:07 | Operative Report ---
Operative Report DATE OF SURGERY: 11/03/16 PREOPERATIVE DIAGNOSIS: Non reassuring FHR tracing, 39+5ega, PreE POSTOPERATIVE DIAGNOSIS: CRUZ delivered, suspect impending uterine rupture see notes OPERATION: [facility] SURGEON: ALONZO TRIPLETT ANESTHESIA: Spinal TISSUE REMOVED OR ALTERED: placenta and cord - sent to pathology COMPLICATIONS: None ESTIMATED BLOOD LOSS: 600ml INTRAOPERATIVE FINDINGS: VMI, no nuchal cord, 2840g (6#4oz), Apgars 8/9, normal tubes/ovaries, uterus with distended Lower uterine segment and upon delivery of ( head attempted to deliver through lower uterine segment/cervix instead of through lower uterine segment incision) ruptured from Lower uterine segment toward cervix, IVF 2100ml, UOP 375ml. Magnesium SUlfate started . RAFAEL drain placed. Recommed C/S at 37wks with next . PROCEDURE: Anesthesia: Spinal Anesthesia provider: [Jeana GARCIA, Jc Daniels FIRE CONTROL TECHNICIAN B] Urine output: [375ml] IV fluids: [2100ml] Indications: [21yo at 39+5ega presents for contractions and also noted to have elevated BPs again. Based on symptoms and elevated BPs diagnosed with PreE. Magnesium Sulfate started . Upon admission noted to have repetitive variables which were unable to be resolved with maternal recussitation including amnioinfusion. Cervix was 2cm but distended above external os prior to presenting part of head. Reviewed recommendations for Primary section due to NRFHRT with variables increasing in severity and decreasing variability. The risks/benefits/alternatives were reviewed and she desired to proceed with planned procedure.] Procedure: The patient was taken to the operating room where spinal anesthesia was obtained and found to be adequate. She was then prepped and draped in the normal sterile fashion and placed in the dorsal supine position with a leftward tilt. A Pfannenstiel skin incision was then made and carried through to the underlying layers of the fascia with the scalpel. The fascia was incised in the midline and the incision extended laterally with the Euceda scissors. The superior aspect of the fascial incision was then grasped with Moiz clamps elevated and the underlying rectus muscles dissected off [bluntly]. Attention was then turned to the inferior aspect of the fascial incision which in a similar fashion was grasped, tented up with Suri clamps, and the rectus muscles dissected off [bluntly]. The rectus muscles were then in the midline and the peritoneum at the amount identified and entered [bluntly]. The peritoneal incision was then extended superiorly and inferiorly with good visualization of the bladder. The bladder blade was inserted and the vesicouterine peritoneum identified grasped with Malaysian pickups and entered sharply with the Metzenbaum scissors. This incision was then extended laterally with the Metzenbaum scissors and a bladder flap created digitally. The bladder blade was then reinserted and the lower uterine segment incised in a transverse fashion with the scalpel. The uterine incision was then extended bluntly. The bladder blade was removed and the infant's head was delivered from cephalic presentation except that upon attempt at delivery of head the head (without fundal pressure) delivered instead below the hysterotomy incision closer to the cervix and then this extended toward the hysterectomy incision. Thus creating reverse T towards the cervix. This is of concern due to occuring in this fashion possibly due to impending uterine rupture. The nose and mouth were suctioned and the cord doubly clamped and cut. And the was handed off to waiting pediatricians. The placenta was then delivered spontaneously and the uterus exteriorized and cleared of all clots and debris. The uterine incision was then repaired with 1- 0 Vicryl in a running locked fashion. A second layer of the same suture was used to obtain hemostasis via imbrication of the initial layer. The reverse T portion of the incision was also repaired in a double layer. The bladder flap was then repaired with 3-0 chromic in a running fashion. The uterus was returned to the patient's abdomen and Interceed was placed overlying the uterine incision to prevent adhesions. The gutters were cleared of all clots and debris. All operative sites were noted to be hemostatic. The fascia was reapproximated with 0 Vicryl in a running fashion from each lateral edge to the midline. The skin was closed with 3-0 Monocryl in a running subcuticular fashion with overlying Dermabond for additional dressing as well as wound closure. 10mm RAFAEL drain placed in usual fashion to help prevent seroma. The patient tolerated the procedure well. Sponge lap needle and instrument counts are correct times 2. 3 g of Ancef were given prior to skin incision. The patient was taken to the recovery area awake and in stable condition.
[2016-11-06] MEDS: IBUPROFEN 800 MG TABLET PO SCH ×2 (05:28→11:38)
[2016-11-06] MEDS: OXYCODONE-ACETAMINOPHEN 5-325 MG TABLET PO PRN ×2 (05:29→10:36)
[2016-11-06] MEDS: SIMETHICONE 80 MG TAB.CHEW PO PRN (05:41)
--- NOTE | 2016-11-06 08:58 | PDOC PROGRESS REPORT ---
Subjective-OB Subjective: Post Delivery Day: 21 year old. Denies any needs at this time Family in room, doing better, ambulating, pain under control, but discomfort at times from incision Physical Exam (OB) Vital Signs: Temp Pulse Resp BP Pulse Ox 98.0 F 62 18 109/61 98 11/06/16 04:13 11/06/16 04:13 11/06/16 04:13 11/06/16 04:13 11/06/16 04:13 Intake & Output 11/05/16 11/06/16 11/07/16 06:59 06:59 06:59 Intake Total 600 950 Output Total 17 8 Balance 583 942 - PIH/Pre-Eclampsia DTR's: 2 + Clonus: Negative Headache: Present Epigastric Pain: No Visual Changes: No - Dressing Removed: Yes Incision: Well Approximated Closure Type: Surgical Glue - Bilateral Tubal Ligation Dressing Removed: No - Lochia Lochia Amount: Scant < 10 ml Lochia Color: Rubra/Red - Abdomen Description: Tender, Soft, Round Hernia Present: No Fundal Description: Firm, Midline Fundal Height: u/u - u/2 Objective-Diagnostic Laboratory: 11/05/16 08:45 11/03/16 19:45 11/05/16 08:45 WBC 14.3 H RBC 4.17 Hgb 12.4 Hct 36.3 MCV 87 MCH 29.6 MCHC 34.1 RDW 14.0 Plt Count 232 Assessment and Plan(PN) - Assessment and Plan (1) Depression with anxiety Is this a current diagnosis for this admission?: Yes (2) Obesity Qualifiers: Obesity type: due to excess calories Is this a current diagnosis for this admission?: Yes (3) Delivery by emergency caesarean section Is this a current diagnosis for this admission?: Yes - Time Spent with Patient Time with patient: Less than 15 minutes Medications reviewed and adjusted accordingly: Yes - Disposition Anticipated Discharge: Home Within: Other - home today
--- NOTE | 2016-11-06 09:01 | PDOC DISCHARGE SUMMARY ---
Final Diagnosis - Final Diagnosis (1) Depression with anxiety Is this a current diagnosis for this admission?: Yes (2) Obesity Is this a current diagnosis for this admission?: Yes (3) Delivery by emergency caesarean section Is this a current diagnosis for this admission?: Yes Discharge Data - Discharge Medication Home Medications: Pnv,Calcium 72/Iron/Folic Acid [Pnv Plus Multivit Tab] 1 tab PO DAILY 09/28/16 Sertraline HCl [Zoloft] 50 mg PO DAILY 09/28/16 Ibuprofen [Motrin 800 mg Tablet] 800 mg PO Q6 #30 tablet 11/06/16 Nifedipine [Procardia XL 30 mg Tablet] 30 mg PO DAILY #30 tab.er.24 11/06/16 Oxycodone HCl/Acetaminophen [Percocet 5-325 mg Tablet] 1 tab PO Q4HP PRN #30 tablet 11/06/16 Reason(s) for Admission: Ceasarean Section-Primary, PIH Procedures: NST, Ultrasound Intrapartum Procedure(s): : Low Cervical, Transverse - Diagnosis Test Laboratory: Temp Pulse Resp BP Pulse Ox 98.0 F 62 18 109/61 98 11/06/16 04:13 11/06/16 04:13 11/06/16 04:13 11/06/16 04:13 11/06/16 04:13 11/03/16 11/03/16 11/03/16 10:05 10:49 19:45 RBC 4.64 4.84 Hgb 13.7 14.2 Hct 40.0 41.6 Urine Opiates Screen NEGATIVE 11/04/16 11/05/16 06:10 08:45 RBC 4.47 4.17 Hgb 13.2 12.4 Hct 37.8 36.3 Urine Opiates Screen - Discharge information/Instructions Discharge Activity: Activity As Tolerated, Balance Activity w/Rest, No Driving, No Lifting Over 10 Pounds, No Lifting/Push/Pulling, Pelvic Rest, No tub bath Discharge Diet: As Tolerated, Regular Disposition: HOME, SELF-CARE Follow up with: [facility] in: 5, Days
[2016-11-06] MEDS: PRENATAL VITAMIN W-O CA NO5/FE FUMARATE/FA CAPSULE PO SCH (10:26)
[2016-11-06] MEDS: NIFEDIPINE 30 MG TAB.ER.24 PO SCH (10:26)
[2016-11-06] MEDS: DOCUSATE SODIUM 100 MG CAPSULE PO SCH (10:26)
[2016-11-06 12:05] VITALS: BP 130/85
== END 2016-11-06 12:35 | disposition home or self-care (01) | DRG 765 ==
LOC: LC 09:55 → LR 10:43 → 2S 11-04 02:49
PROVIDERS: ADMIT Student in an Organized Health Care Education/Training Program; ATTEND Obstetrics & Gynecology
PROC: 10D00Z1 Extraction of Products of Conception, Low, Open Approach (ICD-10-PCS; principal; 2016-11-03)
PROC: 0W9G00Z Drainage of Peritoneal Cavity with Drainage Device, Open Approach (ICD-10-PCS; 2016-11-03)
PROC: 4A1HXCZ Monitoring of Products of Conception, Cardiac Rate, External Approach (ICD-10-PCS; 2016-11-03)
DX: O76 Abnormality in fetal heart rate and rhythm complicating labor and delivery (principal); O71.1 Rupture of uterus during labor; O99.344 Other mental disorders complicating childbirth; O99.214 Obesity complicating childbirth; F32.9 Major depressive disorder, single episode, unspecified; F41.9 Anxiety disorder, unspecified; O77.0 Labor and delivery complicated by meconium in amniotic fluid; E66.9 Obesity, unspecified; O14.94 Unspecified pre-eclampsia, complicating childbirth; Z79.899 Other long term (current) drug therapy; Z37.0 Single live birth; Z3A.39 39 weeks gestation of pregnancy; Z87.891 Personal history of nicotine dependence
CPT/HCPCS: 1961; 36415; 80053; 80307; 81005; 82565; 82570; 83615; 84156; 84550; 85025; 85027; 85610; 85730; 86592; 86850; 86900; 86901; 88307; 94799; C1765; J0131; J0690; J1100; J1170; J1650; J1885; J2250; J2270; J2300; J2405; J2590; J2765; J3010; J3475; J3490; S0119